=== PATIENT | male | born 1935 | race Caucasian/White ===

== ENCOUNTER 2020-01-14 11:19 | Inpatient (IN) | payer MEDICARE, OTHER ==
[~2020-01-14] VITALS: Ht 167.6 cm; Wt 49.9 kg
[~2020-01-14 11:19] MED LIST: ATOR10TA PO; LEVO750T46 PO; PRAS10TA5 PO
[2020-01-14] MEDS ORDERED: IV NS 0.9% 500 ML BAG IV ONE (11:30)
--- NOTE | 2020-01-14 11:42 | NUR ---
PATIENT BIB [facility] HOME C/O WEAKNESS AND ABNORMAL LABS (ELEVATED SODIUM). PATIENT AWAKE, A/O X 3. NO ACUTE DISTRESS. CONNECTED TO MONITOR. WILL CONTINUE TO MONITOR ACCORDINGLY
--- NOTE | 2020-01-14 11:50 | NUR ---
IV LINE ESTABLISHED, DYE TANK TENDER AT BEDSIDE FOR BLOOD DRAW
[2020-01-14 11:54] LABS: BASOPHILS % (AUTO) 0.1 % (0.0-2.0); HEMATOCRIT 42 % (39-51); HEMOGLOBIN 13.5 g/dL (13.5-17.5); LYMPHOCYTES # (AUTO) 1.5 /CMM (0.8-4.8); LYMPHOCYTES % (AUTO) 6.3 % (20.0-44.0); MEAN CORPUSCULAR HGB CONC 32 g/dl (31.0-36.0); MEAN CORPUSCULAR VOLUME 94 fL (80-96); MONOCYTES # (AUTO) 1.8 /CMM (0.1-1.30); MONOCYTES % (AUTO) 7.8 % (2.0-12.0); NEUTROPHILS # (AUTO) 19.7 /CMM (1.8-8.9); NEUTROPHILS % (AUTO) 85.8 % (43.0-81.0); PLATELET COUNT (AUTO) 176 /CMM (150-450); RED BLOOD CELL COUNT(AUTO) 4.48 MIL/uL (4.5-6.0)
[2020-01-14 12:15] LABS: SODIUM SERUM 157 mmol/L (136-145)
[2020-01-14 12:16] LABS: CARBON DIOXIDE 30 mmol/L (21-32); CHLORIDE 116 mmol/L (98-107); POTASSIUM 3.6 mmol/L (3.5-5.1)
[2020-01-14 12:17] LABS: ALANINE AMINOTRANSFERASE 21 U/L (12-78); ALBUMIN 3.5 g/dL (3.4-5.0); ALKALINE PHOSPHATASE 109 U/L (46-116); ASPARTATE AMINOTRANSFERASE 26 U/L (15-37); BILIRUBIN,DIRECT 0.1 mg/dL (0.0-0.2); BILIRUBIN,TOTAL 0.6 mg/dL (0.2-1.0); CALCIUM, SERUM 9.8 mg/dL (8.5-10.1); CREATININE 1.2 mg/dL (0.6-1.3); GLUCOSE 114 mg/dL (74-106); TOTAL PROTEIN, SERUM 9.9 g/dL (6.4-8.2); UREA NITROGEN, BLOOD 38 mg/dL (7-18)
[2020-01-14] MEDS ORDERED: IV NS 0.9% 1,000 ML BAG IV ONE (12:30)
[2020-01-14] MEDS ORDERED: CEFTRIAXONE 1GM BAG (ER ONLY) 1 GM/50 ML PIGGYBACK IV ONE (12:30)
[2020-01-14] MEDS ORDERED: CEFTRIAXONE 1 G in IV D5W 50 ML IV ONE (13:00)
--- NOTE | 2020-01-14 13:06 | NUR ---
with order for urine sample collection. patient verbalized he is able to use urinal. provided with urinal, no urine output at this time. dr Katz aware, no orders at this time. will continue to monitor
[2020-01-14 15:01] LABS: APPEARANCE,URINE Clear (CLEAR); BILIRUBIN,URINE Negative (NEGATIVE); BLOOD, URINE Large Ery/uL (NEGATIVE); COLOR,URINE Yellow (YELLOW); KETONES,URINE Negative (NEGATIVE); LEUKOCYTE ESTERASE ,URINE Moderate (NEGATIVE); NITRITE, URINE Negative (NEGATIVE); PROTEIN,URINE 30 mg/dl (NEGATIVE); UGLUCOSE Negative (NEGATIVE); UROBILINOGEN,URINE 0.2 EU/dL (0.2)
--- NOTE | 2020-01-14 15:11 | NUR ---
urine collected and sent to lab
[2020-01-14] MEDS ORDERED: IV NS 0.9% 1,000 ML IV PRN (15:41)
[2020-01-14 15:42] LABS: BACTERIA,URINE 2+ /HPF (None Seen); SQUAMOUS EPITHELIAL CELL,UR Few /HPF (None Seen); WBC,URINE 21-50 /HPF (0-3)
[2020-01-14 15:43] LABS: MUCUS,URINE Moderate /LPF (None Seen)
[2020-01-14] MEDS ORDERED: MAGNESIUM HYDROXIDE 30 ML UDC PO PRN (16:00)
[2020-01-14] MEDS ORDERED: HYDROCODONE/APAP 5/325MG 1 EACH TABLET PO PRN (16:00)
[2020-01-14] MEDS ORDERED: TEMAZEPAM 15 MG CAPSULE PO PRN (16:00)
[2020-01-14] MEDS ORDERED: Z GUARD REMEDY 2 OZ OINT TP PRN (16:00)
[2020-01-14] MEDS ORDERED: ACETAMINOPHEN 325 MG TABLET PO PRN (16:00)
[2020-01-14] MEDS ORDERED: MORPHINE SULFATE INJ 2 MG/ML DISP.SYRIN IV PRN (16:00)
[2020-01-14] MEDS ORDERED: MAG HYDROX/AL HYDROX/SIMETH 30 ML UDC PO PRN (16:00)
[2020-01-14] MEDS ORDERED: ONDANSETRON HCL/PF 4 MG/2 ML VIAL IVP PRN (16:00)
--- NOTE | 2020-01-14 16:29 | NUR ---
CALLED [facility] TO GIVE REPORT, PER US KALEY, BED NOT AVAILABLE AT THIS TIME AND RECEIVING RN WILL CALL ONCE BED IS READY
--- NOTE | 2020-01-14 16:46 | NUR ---
PLACED CALL TO [facility] AND GAVE REPORT TO LILLIAM GALEANA FOR ANGEL.
--- NOTE | 2020-01-14 17:13 | NUR ---
PATIENT TRANSFERRED TO [facility] 120-2 VIA ACLS PROTOCOL. PATIENT TOLERATED TRANSFER WELL. RECEIVING RN AT BEDSIDE
--- NOTE | 2020-01-14 17:30 | NUR ---
RN NOTES RECEIVED PATIENT VIA DOMINGORNEY FROM THE ED. PT IS AOX4, VERBAL, AND ON BEDREST. HE IS ON 2L OF OXYGEN VIA NC, TOLERATING WELL, NO S/SX OF RESP DISTRESS OR SOB NOTED. SKIN IS INTACT, SLIGHT SACRAL REDNESS PRESENT ON ADMISSION. LUNGS SOUND CLEAR BUT DIMINISHED BILATERALLY. EYES ARE PERRLA, NO DISTENSION ON ABDOMEN, ACTIVE BOWEL SOUNDS. NO EDEMA PRESENT. IV SITE ON RHAND 20 G IS PATENT AND INTACT, RUNNING 1/2 NS AT 75 ML/HR. SAFETY MEASURES HAVE BEEN IMPLEMENTED, CALL LIGHT IS WITHIN REACH, BED IS IN LOWEST AND LOCKED POSITION, SIDE RAILS UP X2M, WILL CONTINUE TO MONITOR FOR ANY CHANGES. MD MADE AWARE OF ARRIVAL
[2020-01-14] MEDS: IV 1/2NS 1000 ML 1,000 ML IV PRN (17:38)
--- NOTE | 2020-01-14 19:50 | NUR ---
RN CLOSING NOTES PATIENT IN BED COMFORTABLY AT THIS TIME, FALLING ASLEEP, BUT ABLE TO LET NEEDS KNOW, A/O X3, ON NC 2L, BREATHING EVEN AND UNLABORED, NO S/S OF SOB/ACUTE DISTRESS NOTED AT THIS TIME, PT IS TOLERATING WELL RIGHT FA IV ACCESS 20G, 1/2 NS INFUSING ORDERED, AND PATIENT TOLERATED WELL, ALL SAFETY MEASURES IN PLACED, CALL LIGHT WITHIN REACH, BED LOCKED AND LOWEST POSITION , WILL CONTINUE TO MONITOR CLOSELY.
[2020-01-14 20:00] VITALS: BP 114/92
--- NOTE | 2020-01-14 20:01 | NUR ---
RN CLOSING NOTES PATIENT IS RESTING IN BED COMFORTABLY AT THIS TIME, NO S/SX OF DISTRESS NOTED. PT IS ON NC, 2L, TOLERATING WELL NO SOB. PT NEEDS HAVE BEEN MET, VITAL SIGNS ARE STABLE, NO ACUTE CHANGES OCCURRED. SAFETY MEASURES HAVE BEEN IMPLEMENTED, CALL LIGHT IS WITHIN REACH, BED IS IN LOWEST AND MI POSITION , PT HAS BEEN ENDORSED TO WIRE COILER MACHINE OPERATOR RN FOR ANGEL.
[2020-01-15] VITALS: BP 109/74
[2020-01-15 04:00] VITALS: BP 127/70
[2020-01-15 06:49] LABS: BASOPHILS % (AUTO) 0.2 % (0.0-2.0); EOSINOPHILS % (AUTO) 0.2 % (0.0-6.0); HEMATOCRIT 36 % (39-51); HEMOGLOBIN 11.3 g/dL (13.5-17.5); LYMPHOCYTES # (AUTO) 1.5 /CMM (0.8-4.8); LYMPHOCYTES % (AUTO) 11.1 % (20.0-44.0); MEAN CORPUSCULAR HGB CONC 31 g/dl (31.0-36.0); MEAN CORPUSCULAR VOLUME 96 fL (80-96); MONOCYTES # (AUTO) 1.4 /CMM (0.1-1.30); MONOCYTES % (AUTO) 10.7 % (2.0-12.0); NEUTROPHILS # (AUTO) 10.3 /CMM (1.8-8.9); NEUTROPHILS % (AUTO) 77.8 % (43.0-81.0); PLATELET COUNT (AUTO) 129 /CMM (150-450); RED BLOOD CELL COUNT(AUTO) 3.73 MIL/uL (4.5-6.0); WHITE BLOOD COUNT (AUTO) 13.2 K/uL (4.3-11.0)
--- NOTE | 2020-01-15 07:00 | NUR ---
TRIBAL JUDGE NOTES, PATIENT SLEEPING AT THIS TIME, BUT AROUSES TO TACTILE STIMULI, NO CHANGE IN LOC DURING MY SHIFT, BREATHING EVEN AND UNLABORED, NO SOB/ACUTE DISTRESS NOTED AT THIS TIME, IV SITE RIGHT FA PATENT AND INTACT AND IVF INFUSING ORDERED, AND PATIENT TOLERATED WELL, AT THIS TIME, NO SIGNIFICANT CHANGE IN CONDITION DURING THE NIGHT, BED LOCKED AND LOWEST POSITION, BED ALARM ON, WILL ENDORSE TO ONCOMING NURSE FOR CONTINUITY OF CARE.
[2020-01-15 07:16] LABS: CALCIUM, SERUM 8.6 mg/dL (8.5-10.1); CREATININE 0.9 mg/dL (0.6-1.3); MAGNESIUM 2.4 mg/dL (1.8-2.4); PHOSPHORUS 2.8 mg/dL (2.5-4.9); POTASSIUM 3.3 mmol/L (3.5-5.1)
[2020-01-15 07:21] LABS: THYROID STIMULATING HORMONE 1.817 uIU/mL (0.358-3.74)
[2020-01-15] MEDS: IV 1/2NS 1000 ML 1,000 ML IV PRN (07:24)
[2020-01-15 08:00] VITALS: BP 108/63
--- NOTE | 2020-01-15 08:15 | NUR ---
BLOW MACHINE TENDER STARCH SPRAYING NOTES RECEIVED PATIENT ALERT ORIENTED RESPONSIVE TO VERBAL AND TACTILE STIMULI. BREATHING NORMAL NO SOB NOTED. ON NC 2L/MIN. ON CARDIAC DIET TOLERATING WELL. PATIENT COUGHING WHILE EATING WILL NOTIFY MD. LEFT FA 20G HEP LOCK INTACT AND FLUSHED WELL. ON TELE MONITORING HR-[address] BED LOWEST AND LOCKED POSITION. PLAN OF CARE DISCUSSED WITH THE PATIENT . CALL LIGHT WITHIN REACH. WILL CONT TO MONITOR.
[2020-01-15] MEDS: PANTOPRAZOLE 40 MG TABLET.DR PO SCH (08:40)
--- NOTE | 2020-01-15 10:17 | NUR ---
AMBULATORY CARE NURSE NOTE NOTED COUGHING WHEN EATING BARB NOTIFIED OK TO HAVE SWALLOW EVAL
--- NOTE | 2020-01-15 10:30 | NUR ---
RN NOTES PER SPEECH THERAPIST PATIENT OK TO HAVE SOFT DIET. WILL DO VIDEO SWALLOW STUDY IN AM.
[2020-01-15] MEDS ORDERED: POTASSIUM CHLORIDE 20 MEQ TAB.PRT.SR PO SCH (11:30)
[2020-01-15] MEDS: CEFTRIAXONE 1 G in IV D5W 50 ML IV SCH (12:20)
--- NOTE | 2020-01-15 12:40 | NUR ---
telex operator note per naresh rn cardiology physician assistant ok to do swallow video, order carried out
[2020-01-15] MEDS ORDERED: CEPH250C PO (13:48)
[2020-01-15] MEDS ORDERED: PIRF267C2 PO (13:48)
[2020-01-15] MEDS ORDERED: TAMS-12 PO (13:48)
[2020-01-15] MEDS ORDERED: ASPI-1169 PO (13:48)
[2020-01-15] MEDS ORDERED: FINA5TAB11 PO (13:48)
--- NOTE | 2020-01-15 13:49 | NUR ---
BLINDMAKER/MED RECON MED RECON UPDATED. INFO OBTAINED FROM THE DAUGHTER LEONEL [phone]. CN AWARE.
[2020-01-15 17:24] VITALS: BP 116/75
--- NOTE | 2020-01-15 17:29 | NUR ---
BENEFIT AUTHORIZER NOTE SPOKE WITH BARB TELEPHONE NUMBER GIVEN TO HER OF DAUGHTER PATIENT
[2020-01-15] MEDS: ENSURE ENLIVE 237 ML LIQUID (VANILLA) PO SCH (17:47)
--- NOTE | 2020-01-15 18:51 | NUR ---
RN NOTES RESTING COMFORTABLY IN BED. NO SOB NOTED. VITAL SIGNS WNL. BREATHING NORMAL NO SOB NOTED. SAFETY MEASURES IN PLACE. CALL LIGHT WITHIN REACH. BED IN LOW AND LOCKED POSITION. WILL ENDORSE PATIENT TO NIGHT NURSE.
--- NOTE | 2020-01-15 19:35 | NUR ---
ORCHID SUPERINTENDENT NOTES, PATIENT IN BED, AWAKE A/O X3, ABLE TO LET NEEDS KNOW, ON NC 2L, BREATHING EVEN AND UNLABORED, NO S/S OF SOB/ACUTE DISTRESS NOTED AT THIS TIME, NSR IN TELE MONITOR WITH HR IN 80S AT THIS TIME, RIGHT FA IV ACCESS 20G, 1/2 NS INFUSING ORDERED, AND PATIENT TOLERATED WELL, NO S/S OF INFILTRATION OR ABNORMALITY NOTED, ALL SAFETY MEASURES IN PLACED, CALL LIGHT WITHIN REACH, BED LOCKED AND LOWEST POSITION , ISOLATION PRECAUTIONS IN PLACED, WILL CONTINUE TO MONITOR CLOSELY.
[2020-01-15 20:00] VITALS: BP 116/63
[2020-01-15] MEDS: MUPIROCIN OINT 2% 22 GM TUBE SCH (21:25)
[2020-01-16] VITALS: BP 123/65
[2020-01-16] MEDS: IV 1/2NS 1000 ML 1,000 ML IV PRN (02:14)
[2020-01-16 04:00] VITALS: BP 115/61
--- NOTE | 2020-01-16 06:54 | NUR ---
SQL DEVELOPER NOTES, PATIENT IN BED AWAKE AT THIS TIME, A/O X3, NO CHANGE IN LOC, BREATHING EVEN AND UNLABORED, NO SOB/ACUTE DISTRESS NOTED AT THIS TIME, IV SITE RIGHT FA PATENT AND INTACT AND IVF INFUSING ORDERED, AND PATIENT TOLERATED WELL, NO SIGNIFICANT CHANGE IN CONDITION DURING THE NIGHT, BED LOCKED AND LOWEST POSITION, BED ALARM ON, WILL ENDORSE CONTINUITY OF CARE TO ONCOMING NURSE.
[2020-01-16 07:08] LABS: BASOPHILS % (AUTO) 0.3 % (0.0-2.0); EOSINOPHILS % (AUTO) 0.8 % (0.0-6.0); HEMATOCRIT 30 % (39-51); HEMOGLOBIN 9.6 g/dL (13.5-17.5); LYMPHOCYTES # (AUTO) 1.3 /CMM (0.8-4.8); LYMPHOCYTES % (AUTO) 20.1 % (20.0-44.0); MEAN CORPUSCULAR HGB CONC 33 g/dl (31.0-36.0); MEAN CORPUSCULAR VOLUME 94 fL (80-96); MONOCYTES # (AUTO) 0.8 /CMM (0.1-1.30); MONOCYTES % (AUTO) 11.5 % (2.0-12.0); NEUTROPHILS # (AUTO) 4.5 /CMM (1.8-8.9); NEUTROPHILS % (AUTO) 67.3 % (43.0-81.0); PLATELET COUNT (AUTO) 122 /CMM (150-450); RED BLOOD CELL COUNT(AUTO) 3.14 MIL/uL (4.5-6.0); WHITE BLOOD COUNT (AUTO) 6.6 K/uL (4.3-11.0)
--- NOTE | 2020-01-16 07:25 | NUR ---
RN OPENING NOTES PATIENT IN BED AWAKE AT THIS TIME, A/O X3, NO CHANGE IN LOC, BREATHING EVEN AND UNLABORED, NO SOB/ACUTE DISTRESS NOTED AT THIS TIME, IV SITE RIGHT FA PATENT AND INTACT AND IVF INFUSING ORDERED, BED LOCKED AND LOWEST POSITION, BED ALARM ON, WILL CONTINUE TO MONITOR.
[2020-01-16 07:48] LABS: ALBUMIN 2.4 g/dL (3.4-5.0); BILIRUBIN,TOTAL 0.3 mg/dL (0.2-1.0); CALCIUM, SERUM 8.2 mg/dL (8.5-10.1); CREATININE 0.8 mg/dL (0.6-1.3); MAGNESIUM 2.2 mg/dL (1.8-2.4); PHOSPHORUS 1.9 mg/dL (2.5-4.9); POTASSIUM 3.3 mmol/L (3.5-5.1); TOTAL PROTEIN, SERUM 7.2 g/dL (6.4-8.2)
[2020-01-16 08:00] VITALS: BP 111/69
[2020-01-16] MEDS: PANTOPRAZOLE 40 MG TABLET.DR PO SCH (08:54)
[2020-01-16] MEDS: MUPIROCIN OINT 2% 22 GM TUBE SCH ×2 (08:55→20:41)
[2020-01-16] MEDS: ENSURE ENLIVE 237 ML LIQUID (VANILLA) PO SCH ×3 (08:55→17:12)
[2020-01-16] MEDS ORDERED: POTASSIUM CHLORIDE 20 MEQ TAB.PRT.SR PO SCH (11:00)
[2020-01-16 12:00] VITALS: BP 106/58
[2020-01-16] MEDS ORDERED: NEUTRA PHOS 1 POWD.PACKET PO ONE (12:30)
[2020-01-16] MEDS: CEFTRIAXONE 1 G in IV D5W 50 ML IV SCH (12:42)
[2020-01-16 16:00] VITALS: BP_SYST 112; BP_SYST 99; BP_DIAS 54; BP_DIAS 67
[2020-01-16] MEDS ORDERED: BARIUM SULFATE 148 GM SUSP.RECON PO ONE (18:26)
[2020-01-16] MEDS ORDERED: BARIUM SULFATE 240 ML ORAL.SUSP PO ONE (18:26)
--- NOTE | 2020-01-16 19:22 | NUR ---
RN CLOSING NOTES PATIENT IN BED AWAKE AT THIS TIME, A/O X3, NO CHANGE IN LOC, PT HAD A VIDEO SWALLOW STUDY. NEW DIET ORDERS IN PLACE WITH STRICT ASPIRATION PRECAUTIONS. BREATHING EVEN AND UNLABORED, NO SOB/ACUTE DISTRESS NOTED AT THIS TIME, IV SITE RIGHT FA PATENT AND INTACT AND IVF KCL INFUSING AT 75 MLS/HR, BED IS LOCKED AND LOWEST POSITION WITH CALL LIGHT IN REACH OF PATIENT. BED ALARM ON, WILL ENDORSE ANGEL TO YARDER BOSS RN.
--- NOTE | 2020-01-16 19:30 | NUR ---
RN OPENING NOTE PATIENT IN BED AWAKE AT THIS TIME, A/O X3, NO CHANGE IN LOC, PT ON STRICT ASPIRATION PRECAUTIONS. BREATHING EVEN AND UNLABORED, NO SOB/ACUTE DISTRESS NOTED AT THIS TIME, IV SITE RIGHT FA PATENT AND INTACT AND IVF KCL INFUSING AT 75 MLS/HR, BED IS LOCKED AND LOWEST POSITION WITH CALL LIGHT IN REACH OF PATIENT. URINAL AT BEDSIDE BED ALARM ON WILL CONTINUE TO MONITOR
[2020-01-16 20:00] VITALS: BP 113/63
[2020-01-17 04:00] VITALS: BP 99/62
[2020-01-17 06:47] LABS: BASOPHILS % (AUTO) 0.2 % (0.0-2.0); EOSINOPHILS % (AUTO) 0.9 % (0.0-6.0); HEMATOCRIT 29 % (39-51); HEMOGLOBIN 9.6 g/dL (13.5-17.5); LYMPHOCYTES # (AUTO) 1.2 /CMM (0.8-4.8); LYMPHOCYTES % (AUTO) 26.3 % (20.0-44.0); MEAN CORPUSCULAR HGB CONC 33 g/dl (31.0-36.0); MEAN CORPUSCULAR VOLUME 94 fL (80-96); MONOCYTES # (AUTO) 0.8 /CMM (0.1-1.30); MONOCYTES % (AUTO) 17.3 % (2.0-12.0); NEUTROPHILS # (AUTO) 2.5 /CMM (1.8-8.9); NEUTROPHILS % (AUTO) 55.3 % (43.0-81.0); PLATELET COUNT (AUTO) 126 /CMM (150-450); WHITE BLOOD COUNT (AUTO) 4.6 K/uL (4.3-11.0)
[2020-01-17 06:53] LABS: CALCIUM, SERUM 8.3 mg/dL (8.5-10.1); CREATININE 0.8 mg/dL (0.6-1.3); MAGNESIUM 2.1 mg/dL (1.8-2.4); PHOSPHORUS 2.4 mg/dL (2.5-4.9); POTASSIUM 4.3 mmol/L (3.5-5.1)
--- NOTE | 2020-01-17 07:30 | NUR ---
MS RN NOTES PATIENT IN BED, ASLEEP, RESPONDS TO NAME AND TOUCH, A/O X3, NO CHANGE IN LOC, BREATHING EVEN AND UNLABORED, NO SOB/ACUTE DISTRESS NOTED AT THIS TIME, DENIES PAIN. IV SITE RIGHT FA, FLUSHES WELL, SITE CLEAR WITH 1/2 NS + 40 MEQ KCL RUNNING AT 75 ML/HR, PUREED DIET, THICKENED LIQUID DIET. SEE NURSING FLOWSHEET FOR SKIN ISSUES. PLAN OF CARE DISCUSSED, VERBALIZED UNDERSTANDING. BED LOCKED AND LOWEST POSITION, BED ALARM ON, REMINDED TO TURN AND REPOSITION, CALL LIGHT WITHIN REACH, WILL CONT TO MONITOR PATIENT,
[2020-01-17 08:00] VITALS: BP 107/72
[2020-01-17] MEDS: PANTOPRAZOLE 40 MG TABLET.DR PO SCH (08:06)
[2020-01-17] MEDS: MUPIROCIN OINT 2% 22 GM TUBE SCH ×2 (08:15→20:35)
[2020-01-17] MEDS: ENSURE ENLIVE 237 ML LIQUID (VANILLA) PO SCH ×3 (08:21→16:33)
--- NOTE | 2020-01-17 09:30 | NUR ---
RN NOTES DUE MEDS GIVEN.
[2020-01-17] MEDS: CEFTRIAXONE 1 G in IV D5W 50 ML IV SCH (12:58)
[2020-01-17] MEDS ORDERED: NEUTRA PHOS 1 POWD.PACKET PO ONE (15:30)
[2020-01-17 16:00] VITALS: BP 132/51
--- NOTE | 2020-01-17 19:14 | NUR ---
RN OPENING NOTE PATIENT IN BED AWAKE AT THIS TIME, A/O X3, NO CHANGE IN LOC, PT ON STRICT ASPIRATION PRECAUTIONS. BREATHING EVEN AND UNLABORED, NO SOB/ACUTE DISTRESS NOTED AT THIS TIME, IV SITE RFA INTACT AND PATENT IVF INFUSING AT 75 MLS/HR, BED IS LOCKED AND LOWEST POSITION WITH CALL LIGHT IN REACH OF PATIENT. URINAL AT BEDSIDE BED ALARM ON WILL CONTINUE TO MONITOR
--- NOTE | 2020-01-17 19:15 | NUR ---
RN NOTES ALL NEEDS MET AT THIS TIME. NOT IN ANY DISTRESS. RESTING COMFORTABLY, TURNED AND REPOSITIONED Q 2HOURS. PM CARE DONE EARLIER. NO OTHER SIGNIFICANT CHANGE IN CONDITION. SAFETY MEASURES IN PLACE. CALL LIGHT WITHIN REACH ENDORSED TO NEXT SHIFT FOR ANGEL.
[2020-01-17 20:00] VITALS: BP 114/63
[2020-01-18 04:00] VITALS: BP 112/62
[2020-01-18 06:56] LABS: CALCIUM, SERUM 8.7 mg/dL (8.5-10.1); CREATININE 0.6 mg/dL (0.6-1.3); PHOSPHORUS 2.6 mg/dL (2.5-4.9); POTASSIUM 3.8 mmol/L (3.5-5.1)
--- NOTE | 2020-01-18 07:24 | NUR ---
RN CLOSING NOTE PT RESTING IN BED hob NOT IN ANY DISTRESS. RESTING COMFORTABLY, TURNED AND REPOSITIONED Q 2HOURS. PM CARE DONE EARLIER. NO OTHER SIGNIFICANT CHANGE IN CONDITION. SAFETY MEASURES IN PLACE. CALL LIGHT WITHIN REACH ENDORSED TO NEXT SHIFT FOR ANGEL.
[2020-01-18 08:00] VITALS: BP 118/57
[2020-01-18] MEDS: PANTOPRAZOLE 40 MG TABLET.DR PO SCH (08:01)
[2020-01-18] MEDS: MUPIROCIN OINT 2% 22 GM TUBE SCH (09:14)
[2020-01-18] MEDS: ENSURE ENLIVE 237 ML LIQUID (VANILLA) PO SCH (09:14)
[2020-01-18] MEDS ORDERED: MUPI22OI7 (10:55)
[2020-01-18] MEDS ORDERED: PANT40TA2 PO (10:55)
[2020-01-18] MEDS ORDERED: TEMA15CA5 PO (10:55)
[2020-01-18] MEDS ORDERED: LACT-246 PO (10:55)
[2020-01-18 12:13] VITALS: BP 118/62
--- NOTE | 2020-01-18 12:55 | NUR ---
very alert, oriented, and appropriate, knowing he is going home with family, daughter will picket [employer] on 2liter NC, sat 99% on room air, 97%, denied dyspnea, no sob noted, and asked patient whether he is okayed on room air, confirmed "Yes" Pureed, pudding with thick liquid, tolerates well.
--- NOTE | 2020-01-18 13:43 | NUR ---
follow up with raiza riddle ,aware cannot pickup patient.awaits transportation arrangement per cm.
--- NOTE | 2020-01-18 16:28 | NUR ---
picked up by ambulance, alert, oriented, very appropriate. All paper works gave to the ambulance personnel 1/ patient must have pureed, pudding with thicket liquid 2/ rx for restoril Made aware paper works be given to home health care personnel when gets home.
== END 2020-01-18 16:35 | disposition home health service (06) | DRG 871 ==
LOC: ER 11:20 → TELE1 16:39 → MEDSG1 01-16 10:21
PROVIDERS: ADMIT Nurse Practitioner Acute Care; ATTEND Registered Nurse
DX: A41.9 Sepsis, unspecified organism (principal); E43 Unspecified severe protein-calorie malnutrition; G92 Toxic encephalopathy; E87.0 Hyperosmolality and hypernatremia; N39.0 Urinary tract infection, site not specified; N17.9 Acute kidney failure, unspecified; E87.2 Acidosis; Z68.1 Body mass index [BMI] 19.9 or less, adult; E78.5 Hyperlipidemia, unspecified; E86.1 Hypovolemia; I10 Essential (primary) hypertension; I25.10 Atherosclerotic heart disease of native coronary artery without angina pectoris; J44.9 Chronic obstructive pulmonary disease, unspecified; Z85.46 Personal history of malignant neoplasm of prostate; E87.6 Hypokalemia; E86.0 Dehydration; R13.10 Dysphagia, unspecified; Z87.891 Personal history of nicotine dependence; Z95.5 Presence of coronary angioplasty implant and graft; M19.90 Unspecified osteoarthritis, unspecified site; F03.90 Unspecified dementia, unspecified severity, without behavioral disturbance, psychotic disturbance, mood disturbance, and anxiety; M62.50 Muscle wasting and atrophy, not elsewhere classified, unspecified site; R53.1 Weakness; R31.9 Hematuria, unspecified; B96.89 Other specified bacterial agents as the cause of diseases classified elsewhere
CPT/HCPCS: 36415; 70450-TC; 71045-TC; 74230-TC; 80048-TC; 80053-TC; 80061-TC; 80076-TC; 81000-TC; 83605-TC; 83735-TC; 84100-TC; 84443-TC; 84484-TC; 85025-TC; 87040-TC; 87081-TC; 87086-TC; 92526; 92611-TC; 97116-TC; 97530-TC; G0378; J0696; J3480; J3490; J7030; J7040; J7060

== ENCOUNTER 2020-01-21 19:01 | Inpatient (IN) | payer MEDICARE, OTHER ==
[~2020-01-21] VITALS: Ht 182.9 cm; Wt 49.4 kg
[~2020-01-21 19:01] MED LIST changes: +ASPI-1169 PO; -ATOR10TA PO; +FINA5TAB11 PO; +LACT-246 PO; -LEVO750T46 PO; +MUPI22OI7; +PANT40TA2 PO; +PIRF267C2 PO; -PRAS10TA5 PO; +TAMS-12 PO; +TEMA15CA5 PO
--- NOTE | 2020-01-21 19:12 | NUR ---
BIBRA76. WEAKNESS AND COUGH. RECENTLY DISCHARGED FROM HOSPITAL FOR SEPSIS AFEBRILE. TACHYCARDIC. DENIES SOB, DIZZINESS, N/V. DENIES PAIN. AOX3, VSS, RR EVEN AND UNLABORED ON RA. SKIN INTACT, WARM, AND DRY. NO ACUTE DISTRESS NOTED. READY FOR EVAL.
[2020-01-21 19:32] LABS: BASOPHILS % (AUTO) 0.1 % (0.0-2.0); HEMATOCRIT 37 % (39-51); HEMOGLOBIN 11.8 g/dL (13.5-17.5); LYMPHOCYTES # (AUTO) 0.8 /CMM (0.8-4.8); LYMPHOCYTES % (AUTO) 2.8 % (20.0-44.0); MEAN CORPUSCULAR HGB CONC 32 g/dl (31.0-36.0); MEAN CORPUSCULAR VOLUME 94 fL (80-96); MONOCYTES # (AUTO) 2.8 /CMM (0.1-1.30); MONOCYTES % (AUTO) 10.3 % (2.0-12.0); NEUTROPHILS # (AUTO) 23.7 /CMM (1.8-8.9); NEUTROPHILS % (AUTO) 86.8 % (43.0-81.0); PLATELET COUNT (AUTO) 185 /CMM (150-450); RED BLOOD CELL COUNT(AUTO) 3.97 MIL/uL (4.5-6.0); WHITE BLOOD COUNT (AUTO) 27.4 K/uL (4.3-11.0)
[2020-01-21 19:45] LABS: CALCIUM, SERUM 9.5 mg/dL (8.5-10.1); CREATININE 0.8 mg/dL (0.6-1.3); POTASSIUM 3.9 mmol/L (3.5-5.1)
[2020-01-21 19:51] LABS: ALBUMIN 3.2 g/dL (3.4-5.0); BILIRUBIN,DIRECT 0.1 mg/dL (0.0-0.2); BILIRUBIN,TOTAL 0.3 mg/dL (0.2-1.0); TOTAL PROTEIN, SERUM 9.4 g/dL (6.4-8.2)
[2020-01-21] MEDS ORDERED: MEROPENEM 1,000 MG in IV NS 0.9% 100 ML IV ONE (20:00)
[2020-01-21] MEDS ORDERED: IV NS 0.9% 1,000 ML BAG IV ONE (20:00)
[2020-01-21] MEDS ORDERED: VANCOMYCIN 1 GM in IV D5W 250 ML IV ONE (20:00)
[2020-01-21 20:12] LABS: ABG BASE EXCESS -0.2 mmol/L; ABG OXYGEN SATURATION 94.9 % (92.0-98.5); ABG PCO2 32.3 mmHg (35.0-45.0); ABG PH 7.467 (7.350-7.450); ABG PO2 74.6 mmHg (75.0-100.0); AaDO2 36.5 mmHg; COHb 0.3 % (0.5-1.5); MetHb 0.4 % (0.0-1.5); O2Hb 94.2 % (94.0-97.0); SITE, ABG Right Radial; VENT MODE, BG Room Air
--- NOTE | 2020-01-21 20:23 | NUR ---
CALLED [facility]P FOR TELE BED. +ISO MRSA
--- NOTE | 2020-01-21 20:40 | NUR ---
ER ORA SPOKE WITH HOSPITALIST
--- NOTE | 2020-01-21 21:13 | NUR ---
urine sent to stat lab
[2020-01-21] MEDS ORDERED: VANCOMYCIN 1 GM VIAL ONE (21:16)
[2020-01-21] MEDS ORDERED: MEROPENEM 1 G VIAL IV ONE (21:16)
[2020-01-21] MEDS ORDERED: MAGNESIUM HYDROXIDE 30 ML UDC PO PRN (21:30)
[2020-01-21] MEDS ORDERED: ZOLPIDEM TARTRATE 5 MG TABLET PO PRN (21:30)
[2020-01-21] MEDS ORDERED: ONDANSETRON HCL/PF 4 MG/2 ML VIAL IVP PRN (21:30)
[2020-01-21] MEDS ORDERED: HYDROCODONE/APAP 5/325MG 1 EACH TABLET PO PRN (21:30)
[2020-01-21] MEDS ORDERED: MAG HYDROX/AL HYDROX/SIMETH 30 ML UDC PO PRN (21:30)
[2020-01-21] MEDS ORDERED: TEMAZEPAM 15 MG CAPSULE PO PRN (21:30)
[2020-01-21] MEDS ORDERED: Z GUARD REMEDY 2 OZ OINT TP PRN (21:30)
[2020-01-21] MEDS ORDERED: ACETAMINOPHEN 325 MG TABLET PO PRN (21:30)
[2020-01-21 21:42] LABS: APPEARANCE,URINE Clear (CLEAR); BILIRUBIN,URINE Negative (NEGATIVE); BLOOD, URINE Moderate Ery/uL (NEGATIVE); COLOR,URINE Yellow (YELLOW); KETONES,URINE Negative (NEGATIVE); LEUKOCYTE ESTERASE ,URINE Negative (NEGATIVE); NITRITE, URINE Negative (NEGATIVE); PH,URINE 5.5 (5.0-8.0); PROTEIN,URINE 30 mg/dl (NEGATIVE); UGLUCOSE Negative (NEGATIVE); UROBILINOGEN,URINE 0.2 EU/dL (0.2)
--- NOTE | 2020-01-21 21:44 | NUR ---
PT RESTING COMFORTABLY IN BED. NO COMPLAINTS AT THIS TIME. WILL CONT TO MONITOR.
--- NOTE | 2020-01-21 21:54 | NUR ---
PT TAKEN TO RADIOLOGY VIA [facility]
[2020-01-21 22:01] LABS: RBC,URINE 21-50 /HPF (0-2)
[2020-01-21 22:02] LABS: BACTERIA,URINE Rare /HPF (None Seen); MUCUS,URINE Few /LPF (None Seen); SQUAMOUS EPITHELIAL CELL,UR 0-2 /HPF (None Seen)
--- NOTE | 2020-01-21 22:02 | NUR ---
REPORT GIVEN TO KERVIN BRASHER FOR 311-1T, [facility] ACCEPTING
[2020-01-21] MEDS ORDERED: ASPIRIN 81 MG TAB.CHEW PO SCH (22:30)
[2020-01-21 22:56] LABS: ALBUMIN 2.8 g/dL (3.4-5.0); BILIRUBIN,DIRECT 0.1 mg/dL (0.0-0.2); BILIRUBIN,TOTAL 0.3 mg/dL (0.2-1.0); TOTAL PROTEIN, SERUM 8.3 g/dL (6.4-8.2)
--- NOTE | 2020-01-21 23:17 | NUR ---
[facility]
--- NOTE | 2020-01-21 23:20 | NUR ---
TELE/RN ADMITTING NOTES: RECEIVED REPORT FROM JOSE, ER NURSE. PATIENT ARRIVED IN THE UNIT AT 2315 IN STABLE CONDITION, UNDER ACLS PROTOCOL. APPEARS TO BE A/OX3. VERBALLY RESPONSIVE AND ABLE TO MAKE NEEDS KNOWN. NO SOB NOTED, BREATHING EVEN AND UNLABORED. ON 2L OF OXYGEN VIA NC, SATURATING WELL 99% VS TAKEN AND RECORDED. BP: 118/78, HR: 109, RR: 20, TEMP: 98.5. KEPT PATIENT WARM AND COMFORTABLE AT THIS TIME. ALL NEEDS MET AND RENDERED. ON TELE MONITORING WITH READING OF: SINUS TACHY HR OF 104 AT THSI TIME. SEEN AND EVALUATED BY DR. FATIMA. CURRENTLY ON BED REST, ALSO INFORMED PT. ABOUT CALL LIGHT. ORIENTED TO THE UNIT AND STAFF. IV SITE IS IN THE LEFT FA #20G, INTACT, PATENT AND FLUSHING WELL. ON MRSA ISOLATION. CARDIAC DIET. ORDERS NOTED AND CARRIED OUT. BELONGINGS LIST CHECKED BY FARSHAD PORRAS. CALL LIGHT WITHIN REACH. SAFETY MEASURES INITIATED, BED IS IN LOW, LOCKED POSITION WITH SR UP X2. WILL CONTINUE MONITORING PT. ACCORDINGLY.
[2020-01-21] MEDS: IV NS 0.9% 1,000 ML IV SCH (23:40)
[2020-01-22] VITALS: BP_SYST 118; BP_DIAS 75; BP_DIAS 78
[2020-01-22 04:00] VITALS: BP 120/74
[2020-01-22 04:02] VITALS: BP 120/74
[2020-01-22 06:25] LABS: BASOPHILS % (AUTO) 0.2 % (0.0-2.0); EOSINOPHILS % (AUTO) 0.1 % (0.0-6.0); HEMATOCRIT 30 % (39-51); HEMOGLOBIN 9.5 g/dL (13.5-17.5); LYMPHOCYTES # (AUTO) 1.4 /CMM (0.8-4.8); LYMPHOCYTES % (AUTO) 7.7 % (20.0-44.0); MEAN CORPUSCULAR HGB CONC 32 g/dl (31.0-36.0); MEAN CORPUSCULAR VOLUME 94 fL (80-96); MONOCYTES # (AUTO) 2.1 /CMM (0.1-1.30); MONOCYTES % (AUTO) 11.5 % (2.0-12.0); NEUTROPHILS % (AUTO) 80.5 % (43.0-81.0); PLATELET COUNT (AUTO) 147 /CMM (150-450); RED BLOOD CELL COUNT(AUTO) 3.15 MIL/uL (4.5-6.0); WHITE BLOOD COUNT (AUTO) 18.7 K/uL (4.3-11.0)
[2020-01-22 06:50] LABS: CALCIUM, SERUM 8.2 mg/dL (8.5-10.1); CREATININE 0.6 mg/dL (0.6-1.3); MAGNESIUM 1.9 mg/dL (1.8-2.4); PHOSPHORUS 2.5 mg/dL (2.5-4.9); POTASSIUM 3.5 mmol/L (3.5-5.1)
--- NOTE | 2020-01-22 07:27 | NUR ---
TELE/RN CLOSING NOTES: PATIENT IN STABLE CONDITION, REMAINS A/OX3. AWAKE IN BED, VERBALLY RESPONSIVE AND ABLE TO MAKE NEEDS KNOWN. NO SOB NOTED, BREATHING EVEN AND UNLABORED. ON 2L OF OXYGEN VIA NC, SATURATING WELL 99% ON TELE MONITORING WITH READING OF: SINUS RHYTHM HR OF 80S AT THIS TIME. IV SITE IS IN THE LEFT FA #20G, INTACT, PATENT AND FLUSHING WELL. NS RUNNING AT 100ML/HR. CALL LIGHT WITHIN REACH. SAFETY MEASURES KEPT IN PLACE, BED IS IN LOW, LOCKED POSITION WITH SR UP X2. WILL ENDORSE TO DAY SHIFT FOR ANGEL.
[2020-01-22 08:00] VITALS: BP 87/65
[2020-01-22] MEDS: MUPIROCIN OINT 2% 22 GM TUBE SCH ×2 (09:00→21:33)
[2020-01-22] MEDS ORDERED: PIRFENIDONE PO SCH (09:00)
[2020-01-22] MEDS: IV NS 0.9% 1,000 ML IV SCH ×2 (09:23→17:15)
[2020-01-22] MEDS: ASPIRIN 81 MG TAB.CHEW PO SCH (09:29)
[2020-01-22] MEDS: PANTOPRAZOLE 40 MG TABLET.DR PO SCH (09:29)
[2020-01-22] MEDS: TAMSULOSIN 0.4 MG CAP.SR.24H PO SCH ×2 (09:29→16:27)
[2020-01-22] MEDS: FINASTERIDE (5 MG) 5 MG TABLET PO SCH (09:29)
[2020-01-22] MEDS: ENSURE ENLIVE 237 ML LIQUID (VANILLA) PO SCH ×3 (09:32→16:27)
[2020-01-22] MEDS: CEFTRIAXONE 1 G in IV D5W 50 ML IV SCH (12:43)
[2020-01-22] MEDS: AZITHROMYCIN 250 MG TABLET PO SCH (12:44)
[2020-01-22 16:00] VITALS: BP_SYST 81; BP_SYST 90; BP_DIAS 64; BP_DIAS 65
--- NOTE | 2020-01-22 16:00 | NUR ---
PATIENT SEEMS HIGH RISK OF ASPIRATION . ASPIRATION PRECAUTIONS IMPLEMENTED SWALLOW EVALUATION PENDING. DIET CHANGED TO WELL CHAPPED. WILL INFORM EXT SHIFT.
--- NOTE | 2020-01-22 18:47 | NUR ---
PATIENT IN STABLE CONDITION, REMAINS A/OX3. RESTING IN BED. NO SOB NOTED, BREATHING EVEN AND UNLABORED. ON 2L OF OXYGEN VIA NC, SATURATING 98- 99% . IV SITE IS IN THE LEFT FA #20G, INTACT, PATENT AND FLUSHING WELL. NS RUNNING AT 100ML/HR. CALL LIGHT WITHIN REACH. SAFETY MEASURES KEPT IN PLACE, BED IS IN LOW, LOCKED POSITION WITH SR UP X2, ASPIRATION PRECAUTIONS IMPLEMENTED. WILL ENDORSE TO NEXT SHIFT FOR ANGEL.
[2020-01-22 20:00] VITALS: BP 101/53
--- NOTE | 2020-01-22 20:00 | NUR ---
MS RN NOTES RECEIVED PATIENT AWAKE IN BED WITH NO DISTRESS NOTED. CALL LIGHT WITHIN REACH. PERIPHERAL LINE INTACT AND PATENT. NO C/O PAIN OR DISCOMFORT. ENCOURAGED USE OF CALL LIGHT FOR ASSISTANCE AND VERBALIZED GOOD UNDERSTANDING. ROOM FREE OF CLUTTER AND BELONGINGS KEPT NEAR BEDSIDE. BED IN LOW LOCK SETTING WITH BED ALARM ON AND FUNCTIONING PROPERLY. CONTACT ISOLATION OBSERVED AND MAINTAINED. WILL CONTINUE TO MONITOR.
[2020-01-22] MEDS: MIRTAZAPINE 15 MG TABLET PO SCH (21:25)
[2020-01-22] MEDS ORDERED: MIRTAZAPINE 15 MG TABLET PO SCH (22:00)
--- NOTE | 2020-01-23 01:00 | NUR ---
MS RN PM NOTES REPORT RECIEVED FROM ANDREW GALEANA. RECEIVED PATIENT AWAKE IN BED WITH NO DISTRESS NOTED BREATHING EVEN AND UNLABORED. PATIENT DENIES PAIN DISCOMFORT DISTRESS. CALL LIGHT WITHIN REACH. PERIPHERAL LINE INTACT AND PATENT. ENCOURAGED USE OF CALL LIGHT FOR ASSISTANCE AND VERBALIZED UNDERSTANDING. BED IN LOW LOCK SETTING WITH BED ALARM ON. CONTACT ISOLATION OBSERVED AND MAINTAINED FOR MRSA NARES POSITIVE. ASSUMED CARE AND WILL CONTINUE TO MONITOR.
[2020-01-23] MEDS: IV NS 0.9% 1,000 ML IV SCH ×2 (02:44→14:06)
--- NOTE | 2020-01-23 07:25 | NUR ---
MS RN NOTES RECEIVED PATIENT AWAKE IN BED RESTING COMFORTABLY IN MODERATE HIGH BACK REST. A/OX 3. NO SIGNS OF DISTRESS NOTED AT THIS TIME. IV ACCESS ON LFA #20 WITH NS RUNNING @100ML/HR. INTACT AND PATENT. SAFETY MEASURES IN PLACE, BED IN LOW LOCK SETTING WITH BED ALARM ON AND FUNCTIONING PROPERLY. CALL LIGHT WITHIN REACH. CONTACT ISOLATION MAINTAINED. WILL CONTINUE TO MONITOR.
[2020-01-23 08:00] VITALS: BP 102/49
[2020-01-23] MEDS: PANTOPRAZOLE 40 MG TABLET.DR PO SCH (08:36)
[2020-01-23] MEDS: FINASTERIDE (5 MG) 5 MG TABLET PO SCH (08:36)
[2020-01-23] MEDS: TAMSULOSIN 0.4 MG CAP.SR.24H PO SCH ×2 (08:36→16:37)
[2020-01-23] MEDS: ASPIRIN 81 MG TAB.CHEW PO SCH (08:36)
[2020-01-23] MEDS: ENSURE ENLIVE 237 ML LIQUID (VANILLA) PO SCH ×3 (08:37→16:37)
[2020-01-23] MEDS: MUPIROCIN OINT 2% 22 GM TUBE SCH ×2 (08:41→22:03)
[2020-01-23] MEDS: AZITHROMYCIN 250 MG TABLET PO SCH (12:31)
[2020-01-23] MEDS: CEFTRIAXONE 1 G in IV D5W 50 ML IV SCH (12:32)
[2020-01-23 16:00] VITALS: BP 95/60
--- NOTE | 2020-01-23 18:47 | NUR ---
MS RN NOTES PATIENT AWAKE IN BED RESTING COMFORTABLY IN MODERATE HIGH BACK REST. A/OX 3. NO SIGNS OF DISTRESS NOTED THROUGHOUT THE SHIFT. IV ACCESS ON LFA #20 WITH NS RUNNING @100ML/HR. INTACT AND PATENT. SAFETY MEASURES IN PLACE, ASPIRATION PRECAUTION, BED IN LOW LOCK SETTING WITH BED ALARM ON AND FUNCTIONING PROPERLY. CALL LIGHT WITHIN REACH. CONTACT ISOLATION MAINTAINED. WILL ENDORSE TO BARGE CAPTAIN NURSE FOR ANGEL.
--- NOTE | 2020-01-23 19:30 | NUR ---
ms rohan initial notes received report from am nurse and seen pt in bed awake and alert watching TV at this time. , denies any pain or any discomfort. Pt still with IVF of Ns at 100 ml/hr infusing at this time. no redness noted . kept him warm and comfortable at all times. encourage him to used the call light system if he needs some helped. will continue monitoring, place call light at reach.
[2020-01-23 20:00] VITALS: BP 121/79
[2020-01-23] MEDS: MIRTAZAPINE 15 MG TABLET PO SCH (22:03)
--- NOTE | 2020-01-24 | NUR ---
cattle care worker notes pt sleeping comfortably in bed but arouse to touch , NPO started for his surgery in am for Peg placement. IVF still infusing. will continue monitoring.
[2020-01-24] MEDS: IV NS 0.9% 1,000 ML IV SCH (00:42)
[2020-01-24] MEDS ORDERED: ANESTHESIA TRAY IN PYXIS 1 EA TRAY MC ONE (06:14)
--- NOTE | 2020-01-24 06:28 | NUR ---
MS VINEGAR MAKER CLOSING NOTES PT AWAKE AND AWARE THAT HE'S GOING FOR SURGERY TODAY. NPO SINCE 12 MN. VITAL SIGNS STABLE. ASSISTED OPERATING NURSE TO MOVED THE PATIENT TO OR FOR PROCEDURE. WILL ENDORSE TO AM NURSE FOR CONTINUITY OF CARE.
[2020-01-24 06:56] LABS: BASOPHILS % (AUTO) 0.4 % (0.0-2.0); EOSINOPHILS % (AUTO) 1.3 % (0.0-6.0); HEMATOCRIT 30 % (39-51); HEMOGLOBIN 9.8 g/dL (13.5-17.5); LYMPHOCYTES # (AUTO) 1.3 /CMM (0.8-4.8); MEAN CORPUSCULAR HGB CONC 33 g/dl (31.0-36.0); MEAN CORPUSCULAR VOLUME 93 fL (80-96); MONOCYTES # (AUTO) 1.2 /CMM (0.1-1.30); MONOCYTES % (AUTO) 25.1 % (2.0-12.0); NEUTROPHILS # (AUTO) 2.2 /CMM (1.8-8.9); NEUTROPHILS % (AUTO) 45.2 % (43.0-81.0); PLATELET COUNT (AUTO) 141 /CMM (150-450); RED BLOOD CELL COUNT(AUTO) 3.22 MIL/uL (4.5-6.0); WHITE BLOOD COUNT (AUTO) 4.8 K/uL (4.3-11.0)
[2020-01-24 07:45] LABS: CALCIUM, SERUM 8.6 mg/dL (8.5-10.1); CREATININE 0.6 mg/dL (0.6-1.3); POTASSIUM 3.4 mmol/L (3.5-5.1)
[2020-01-24 08:00] VITALS: BP 129/75
--- NOTE | 2020-01-24 08:00 | NUR ---
M/S RN NOTES PATIENT RECEIVED AWAKE JUST CAME FROM SURGERY, NO RESPIRATORY DISTRESS, NO C/O PAIN AT THIS TIME. VITAL SIGNS STABLE, SKIN WARM TO TOUCH. G TUBE INTACDT WITH NO REDNESS, NO DRAINAGE. GT CHECKED FOR PATENCY AND RESIDUAL. IV ACCESS SITE INTACT AND PATENT. ORDERS CARRIED OUT, PATIENT'S NEEDS ATTENDED, BED ON LOWEST LOCKED POSITION, CALL LIGHT WITHIN REACH. WILL CONTINUE TO MONITOR.
[2020-01-24 08:10] LABS: EOSINOPHILS % (MANUAL) 1 % (0-4); LYMPHOCYTES % (MANUAL) 27 % (16-48); MONOCYTES % (MANUAL) 17 % (0-11.0); NEUTROPHILS % (MANUAL) 55 (42-76)
[2020-01-24] MEDS: PANTOPRAZOLE 40 MG TABLET.DR PO SCH (08:25)
[2020-01-24] MEDS: FINASTERIDE (5 MG) 5 MG TABLET PO SCH (09:10)
[2020-01-24] MEDS: ASPIRIN 81 MG TAB.CHEW PO SCH (09:10)
[2020-01-24] MEDS: TAMSULOSIN 0.4 MG CAP.SR.24H PO SCH ×2 (09:11→18:07)
[2020-01-24] MEDS: ENSURE ENLIVE 237 ML LIQUID (VANILLA) PO SCH ×3 (09:11→18:07)
[2020-01-24] MEDS: MUPIROCIN OINT 2% 22 GM TUBE SCH ×2 (09:12→21:36)
[2020-01-24] MEDS: IV NS 0.9% 1,000 ML IV PRN ×2 (09:24→20:20)
[2020-01-24] MEDS ORDERED: POTASSIUM CHLORIDE 10 MEQ TABLET.SA PO ONE (12:30)
[2020-01-24] MEDS: AZITHROMYCIN 250 MG TABLET PO SCH (13:10)
[2020-01-24] MEDS: CEFTRIAXONE 1 G in IV D5W 50 ML IV SCH (13:12)
[2020-01-24 16:00] VITALS: BP 129/65
--- NOTE | 2020-01-24 18:50 | NUR ---
M/S RN NOTES PATIENT AWAKE IN BED, NO RESPIRATORY DISTRESS, NO C/O PAIN AT THIS TIME. SKIN WARM TO TOUCH, IV ACCESS SITE INTACT AND PATENT. GT INTACT AND PATENT, DRESSING WITH NO DRAINAGE. PATIENT'S NEEDS ATTENDED, BED ON LOWEST LOCKED POSITION, CALL LIGHT WITHIN REACH. WILL ENDORSE TO ONCOMING NURSE.
[2020-01-24] MEDS: MIRTAZAPINE 15 MG TABLET PO SCH (21:36)
--- NOTE | 2020-01-25 06:13 | NUR ---
MS RN NOTES AWAKE & RESPONSIVE. NOT IN ANY DISTRESS. NO SOB NOTED. DENIES ANY CHEST PAIN OR DISCOMFORT AT THIS TIME. WITH IVF INFUSING WELL. MONITORED ACCORDINGLY. CALL LIGHT WITHIN REACH. BED IN LOWEST POSITION. SR UP X 2 FOR SAFETY. WILL ENDORSE TO NEXT SHIFT.
[2020-01-25 07:00] LABS: BASOPHILS % (AUTO) 0.2 % (0.0-2.0); EOSINOPHILS % (AUTO) 0.7 % (0.0-6.0); HEMATOCRIT 30 % (39-51); HEMOGLOBIN 9.7 g/dL (13.5-17.5); LYMPHOCYTES # (AUTO) 1.2 /CMM (0.8-4.8); LYMPHOCYTES % (AUTO) 24.3 % (20.0-44.0); MEAN CORPUSCULAR HGB CONC 33 g/dl (31.0-36.0); MEAN CORPUSCULAR VOLUME 93 fL (80-96); MONOCYTES # (AUTO) 1.1 /CMM (0.1-1.30); MONOCYTES % (AUTO) 23.6 % (2.0-12.0); NEUTROPHILS # (AUTO) 2.4 /CMM (1.8-8.9); NEUTROPHILS % (AUTO) 51.2 % (43.0-81.0); PLATELET COUNT (AUTO) 146 /CMM (150-450); RED BLOOD CELL COUNT(AUTO) 3.16 MIL/uL (4.5-6.0); WHITE BLOOD COUNT (AUTO) 4.8 K/uL (4.3-11.0)
[2020-01-25 07:31] LABS: CALCIUM, SERUM 8.1 mg/dL (8.5-10.1); CREATININE 0.6 mg/dL (0.6-1.3); PHOSPHORUS 2.3 mg/dL (2.5-4.9); POTASSIUM 3.6 mmol/L (3.5-5.1)
--- NOTE | 2020-01-25 07:54 | NUR ---
MS RN NOTES PATIENT RESTING ON BED. AWAKE, A/O X 3. NO ACUTE DISTRESS. NO CHANGES IN LOC NOTED AT THIS TIME. PATIENT CALM AND RELAXED. MAINTAINED ASPIRATION PRECAUTIONS. WILL CONTINUE TO MONITOR. BED LOCKED AND IN LOW POSITION. SIDE RAILS UP X 3. CALL LIGHT WITHIN EASY REACH
[2020-01-25 08:00] VITALS: BP 114/64
[2020-01-25] MEDS: ASPIRIN 81 MG TAB.CHEW PO SCH (08:15)
[2020-01-25] MEDS: FINASTERIDE (5 MG) 5 MG TABLET PO SCH (08:15)
[2020-01-25] MEDS: PANTOPRAZOLE 40 MG TABLET.DR PO SCH (08:15)
[2020-01-25] MEDS: TAMSULOSIN 0.4 MG CAP.SR.24H PO SCH ×2 (08:15→17:05)
[2020-01-25 09:03] LABS: BAND % (MANUAL) 1 % (0.0-5.0); LYMPHOCYTES % (MANUAL) 11 % (16-48); MONOCYTES % (MANUAL) 19 % (0-11.0); NEUTROPHILS % (MANUAL) 69 (42-76)
[2020-01-25] MEDS: ENSURE ENLIVE 237 ML LIQUID (VANILLA) PO SCH ×3 (09:04→17:05)
--- NOTE | 2020-01-25 10:35 | NUR ---
MS RN NOTES SPOKE WITH DAUGHTER, LEONEL CABRERA ([phone]) AND VERBALIZED THAT SHE AGREES WITH PATIENT HAVING GT FEEDING AT THIS TIME, VERBALIZED THAT PATIENT HAD BOLUS FEEDINGS BEFORE FOR 4X/DAY OF ISOSOURCE 1.5 AND THEN WHEN HIS SWALLOWING WAS BETTER, THEY REMOVED HIS GT. VERBALIZED THAT SHE WANTS TO CONTINUE ORAL GRATIFICATION. BARB MARCH FLYER BUILDER PRESENT AT UNIT AND MADE AWARE, TERESA FRANCIS MADE AWARE. WITH NEW RD RECOMMENDATIONS AND BARB MARCH NOTIFIED AND AGREED. ALSO WITH ORDER TO CONTINUE ST SERVICES, CALOS, SPEECH THERAPIST MADE AWARE. WILL CONTINUE TO MONITOR
[2020-01-25] MEDS ORDERED: NEUTRA PHOS 1 POWD.PACKET PO ONE (12:00)
[2020-01-25] MEDS: CEFTRIAXONE 1 G in IV D5W 50 ML IV SCH (12:23)
[2020-01-25] MEDS: AZITHROMYCIN 250 MG TABLET PO SCH (12:24)
--- NOTE | 2020-01-25 12:25 | NUR ---
MS RN NOTES ST ON THE PHONE WITH DAUGHTER
[2020-01-25] MEDS: JEVITY 1.2 CAL 1,000 ML BOTTLE GT SCH ×3 (15:23→21:18)
[2020-01-25 16:00] VITALS: BP 109/60
--- NOTE | 2020-01-25 18:47 | NUR ---
MS RN NOTES PATIENT RESTING INSIDE ROOM. AWAKE, A/O X 2, REORIENTED NEEDED. NO ACUTE DISTRESS. NO C/O PAIN OR DISCOMFORT. NO FACIAL GRIMACE NOTED. PATIENT KEPT CLEAN, DRY AND COMFORTABLE. GT IN PLACE AND FLUSHING WELL. IVF INFUSING ORDERED. SAFETY PRECAUTIONS IN PLACE. MAINTAINED ASPIRATION PRECAUTIONS. WILL ENDORSE TO INCOMING SHIFT FOR ANGEL. BED LOCKED AND IN LOW POSITION. SIDE RAILS UP X 3. CALL LIGHT WITHIN EASY REACH
--- NOTE | 2020-01-25 19:05 | NUR ---
MS RN NOTES RECEIVED PT IN BED AWAKE AND ABLE TO MAKE NEEDS KNOWN. PT A/O X2 WITH PERIODS OF CONFUSION AND REORIENTATION NEEDED. RESPIRATIONS EVEN AND UNLABORED WITH NO S/S OF ACUTE DISTRESS OR SOB NOTED. NO ACUTE DISTRESS. NO COMPLAINTS OF PAIN AT THIS TIME. PT WITH LFA #20G PATENT AND INTACT INFUSING NS @100CC/HR. GT IN PLACE AND FLUSHING WELL. SAFETY MEASURES IN PLACE WITH BED IN LOWEST LOCKED POSITION WITH SIDE RAILS UP X2. CALL LIGHT WITHIN REACH. WILL CONTINUE TO MONITOR.
[2020-01-25 20:00] VITALS: BP_SYST 133; BP_SYST 145; BP_SYST 160; BP_DIAS 70; BP_DIAS 88
[2020-01-25] MEDS: MIRTAZAPINE 15 MG TABLET PO SCH (22:44)
[2020-01-26] MEDS: IV NS 0.9% 1,000 ML IV PRN (00:11)
[2020-01-26 06:33] LABS: BASOPHILS % (AUTO) 0.4 % (0.0-2.0); EOSINOPHILS % (AUTO) 1.1 % (0.0-6.0); HEMATOCRIT 28 % (39-51); LYMPHOCYTES # (AUTO) 1.3 /CMM (0.8-4.8); LYMPHOCYTES % (AUTO) 23.8 % (20.0-44.0); MEAN CORPUSCULAR HGB CONC 32 g/dl (31.0-36.0); MEAN CORPUSCULAR VOLUME 93 fL (80-96); MONOCYTES # (AUTO) 1.4 /CMM (0.1-1.30); MONOCYTES % (AUTO) 26.8 % (2.0-12.0); NEUTROPHILS # (AUTO) 2.6 /CMM (1.8-8.9); NEUTROPHILS % (AUTO) 47.9 % (43.0-81.0); PLATELET COUNT (AUTO) 144 /CMM (150-450); RED BLOOD CELL COUNT(AUTO) 3.02 MIL/uL (4.5-6.0); WHITE BLOOD COUNT (AUTO) 5.4 K/uL (4.3-11.0)
[2020-01-26 06:42] LABS: CALCIUM, SERUM 8.1 mg/dL (8.5-10.1); CREATININE 0.6 mg/dL (0.6-1.3); MAGNESIUM 1.8 mg/dL (1.8-2.4); PHOSPHORUS 2.3 mg/dL (2.5-4.9); POTASSIUM 3.6 mmol/L (3.5-5.1)
[2020-01-26] MEDS: JEVITY 1.2 CAL 1,000 ML BOTTLE GT SCH ×2 (07:02→10:41)
--- NOTE | 2020-01-26 07:23 | NUR ---
RN OPENING NOTE PT WAS RECEIVED IN BED AT LOWEST AND LOCKED POSITION WITH SIDE RAILS UPX2, A/O X2-3 CONFUSED, BREATHING EVEN AND UNLABORED ON 2L VIA NC, S/P GTUBE PLACEMENT 01/25/[address] ATKINSON CURRENTLY RUNNING JEVITY 1.2 BOLUS 5 XDAILY, IV IS PATENT AND INTACT WITH IVF RUNNING, POSSIBLE D/C THIS AM, SAFETY PRECAUTIONS IN PLACE, CALL LIGHT IN REACH, WILL MONITOR ACCORDINGLY
--- NOTE | 2020-01-26 07:31 | NUR ---
MS RN NOTES PT IN BED AWAKE AND ABLE TO MAKE NEEDS KNOWN. PT A/O X2 WITH PERIODS OF CONFUSION AND REORIENTATION NEEDED. RESPIRATIONS EVEN AND UNLABORED WITH NO S/S OF ACUTE DISTRESS OR SOB NOTED THROUGHOUT SHIFT. NO COMPLAINTS OF PAIN AT THIS TIME. PT KEPT CLEAN, DRY, AND COMFORTABLE. PT WITH LFA #20G PATENT AND INTACT INFUSING NS @100CC/HR. GT IN PLACE AND FLUSHING WELL. SAFETY MEASURES IN PLACE WITH BED IN LOWEST LOCKED POSITION WITH SIDE RAILS UP X2. CALL LIGHT WITHIN REACH. WILL ENDORSE TO ONCOMING NURSE FOR ANGEL.
[2020-01-26 08:00] VITALS: BP 108/74
[2020-01-26] MEDS: ASPIRIN 81 MG TAB.CHEW PO SCH (08:07)
[2020-01-26] MEDS: ENSURE ENLIVE 237 ML LIQUID (VANILLA) PO SCH ×2 (08:07→12:26)
[2020-01-26] MEDS: PANTOPRAZOLE 40 MG TABLET.DR PO SCH (08:07)
[2020-01-26] MEDS: FINASTERIDE (5 MG) 5 MG TABLET PO SCH (08:07)
[2020-01-26] MEDS: TAMSULOSIN 0.4 MG CAP.SR.24H PO SCH (08:07)
[2020-01-26 08:33] LABS: EOSINOPHILS % (MANUAL) 1 % (0-4); LYMPHOCYTES % (MANUAL) 15 % (16-48); MONOCYTES % (MANUAL) 20 % (0-11.0); NEUTROPHILS % (MANUAL) 64 (42-76)
[2020-01-26] MEDS ORDERED: NEUTRA PHOS 1 POWD.PACKET PO ONE (11:00)
[2020-01-26] MEDS: AZITHROMYCIN 250 MG TABLET PO SCH (11:15)
[2020-01-26] MEDS ORDERED: K PHOS NEUTRAL 250 MG TABLET PO ONE (11:30)
[2020-01-26] MEDS ORDERED: LACT-209 GT (12:32)
[2020-01-26] MEDS ORDERED: MIRT15TA PO (12:32)
[2020-01-26] MEDS ORDERED: AZIT250T PO (12:32)
--- NOTE | 2020-01-26 13:12 | NUR ---
DISCHARGE NOTE PT WAS DISCHARGED AT THIS TIME IN MEDICALLY STABLE CONDITION BACK HOME WITH HOME HEALTH AND HE LEFT WITH JANIS MOSHE IN THEIR PRIVATE VEHICLE. IV AND ID BAND WERE REMOVED. ALL DISCHARGE PAPERWORK, EXITCARE, AND BELONGING LIST WERE SIGNED, DISCUSSED, AND HANDED TO THE PATIENT. PHOTOS OF SKIN WERE TAKEN AND PLACED IN THE CHART. INFORMED OF NEEDING TO FOLLOW UP WITH PRIMARY CARE DOCTOR, AND HOME HEALTH REGARDING TUBE FEEDINGS. ALL BELONGINGS WERE RETURNED AND TAKEN BY THE PATIENT. ALL NEEDS WERE ATTENDED TO DURING HIS STAY. PT LEFT AT THIS TIME IN STABLE CONDITION BACK HOME.
== END 2020-01-26 13:30 | disposition home health service (06) | DRG 871 ==
LOC: ER 19:02 → TELE 20:41 → MED 01-22 11:09
PROVIDERS: ADMIT Family Medicine; ATTEND Registered Nurse
PROC: 0DH63UZ Insertion of Feeding Device into Stomach, Percutaneous Approach (ICD-10-PCS; principal; 2020-01-24)
DX: A41.9 Sepsis, unspecified organism (principal); I21.A1 Myocardial infarction type 2; E43 Unspecified severe protein-calorie malnutrition; J18.9 Pneumonia, unspecified organism; N39.0 Urinary tract infection, site not specified; G93.49 Other encephalopathy; R64 Cachexia; Z68.1 Body mass index [BMI] 19.9 or less, adult; J44.0 Chronic obstructive pulmonary disease with (acute) lower respiratory infection; I25.10 Atherosclerotic heart disease of native coronary artery without angina pectoris; R13.10 Dysphagia, unspecified; E86.0 Dehydration; D63.8 Anemia in other chronic diseases classified elsewhere; E87.6 Hypokalemia; F03.90 Unspecified dementia, unspecified severity, without behavioral disturbance, psychotic disturbance, mood disturbance, and anxiety; I10 Essential (primary) hypertension; K21.9 Gastro-esophageal reflux disease without esophagitis; Z87.891 Personal history of nicotine dependence; Z85.46 Personal history of malignant neoplasm of prostate; Z79.82 Long term (current) use of aspirin; E88.09 Other disorders of plasma-protein metabolism, not elsewhere classified; M19.90 Unspecified osteoarthritis, unspecified site; N40.1 Benign prostatic hyperplasia with lower urinary tract symptoms; M62.50 Muscle wasting and atrophy, not elsewhere classified, unspecified site; K29.70 Gastritis, unspecified, without bleeding
CPT/HCPCS: 36415; 36600; 71045-TC; 80048-TC; 80061-TC; 80076-TC; 81000-TC; 82803-TC; 83605-TC; 83735-TC; 84100-TC; 84484-TC; 85025-TC; 85610-TC; 85730-TC; 87040-TC; 87081-TC; 87086-TC; 92611-TC; 94799-TC; 97530-TC; G0378; J0696; J2185; J3370; J7030; J7040; J7060